=== PATIENT | male | born 1975 | race Caucasian/White ===

== ENCOUNTER 2017-03-14 09:06 | Emergency (ER) | payer SELFPAY ==
[~2017-03-14] VITALS: Ht 185.4 cm; Wt 80.0 kg
[~2017-03-14 09:06] MED LIST: DICL-201 PO; MULT-506 PO
[2017-03-14 09:11] VITALS: TEMP 37.6; Ht 185.4 cm; Wt 80.0 kg
[2017-03-14] MEDS ORDERED: HYDROmorphone INJ 1 MG/ML SYR IV STA (09:21)
[2017-03-14] MEDS ORDERED: CEFTRIAXONE SOD INJ 1 GM ADDVIAL IV STA (09:21)
[2017-03-14] MEDS ORDERED: KETOROLAC TROMETHAMINE 30 MG/ML VIAL IV STA (09:21)
[2017-03-14] MEDS ORDERED: SODIUM CHLORIDE 0.9% 1000ML 1,000 ML IV STA (09:21)
[2017-03-14] MEDS ORDERED: SULFAMETHOXAZOLE/TRIMETHOPRIM DS 800/160MG TAB PO STA (09:21)
[2017-03-14] MEDS ORDERED: SULF800T23 PO (10:16)
[2017-03-14] MEDS ORDERED: CEPH500C PO (10:16)
[2017-03-14] MEDS ORDERED: VALA1TAB2 PO (10:16)
[2017-03-14] MEDS ORDERED: OXYC-57 PO (10:16)
--- NOTE | 2017-03-14 10:25 | EMERGENCY ROOM VISIT NOTE ---
History Report prepared by Michelle: Eva Griffin Under the Supervision of: Dr. Pasquale Ferraro M.D. First contact with patient: 09:14 Chief Complaint: RASH Stated Complaint: PAIN IN GENITAL AREA, BUMPS, RASH History of Present Illness The patient is a 41 year old male who presents to the Emergency Room with complaints of a worsening rash for the past two days. The patient woke up two days ago with rash in the suprapubic area. The area is red with red and white bumps. He states that it is extremely painful. Movement exacerbates this pain. He rates his pain as a 10/10 in severity. Today the rash is spreading further up is abdomen. He was unable to sleep last night due to pain. The patient has not been using any lotions on the area. He has not tried any medications. He denies any recent antibiotic use. The patient had his significant other are trying to have a baby. He just had STI testing in December that was negative and denies any new sexual partners. He is not concerned for STIs. The patient denies urinary symptoms, testicular pain, and drainage from the penis. He does not work with children. Source of History: patient Onset: 2 days ago Position: abdomen (suprapubic ) Symptom Intensity: 10/10 Timing: worsening Modifying Factors (Worsening): movement Associated Symptoms: No urinary symptoms Note: Pt denies testicular pain and drainage from penis. Review of Systems See HPI for pertinent positives & negatives. A total of 10 systems reviewed and were otherwise negative. Past Medical & Surgical Medical Problems: (1) No significant active problems Family History Patient reports no known family medical history. Social History Smoking Status: Never Smoker Smokeless Tobacco Use: No Alcohol Use: occasionally Marital Status: Housing Status: lives with significant other Occupation Status: employed Current/Historical Medications Scheduled Cephalexin Monohydrate (Keflex), 1 CAP PO QID Sulfa/Trimethoprim (Bactrim Ds 800MG/160MG), 1 TAB PO BID Valacyclovir Hcl (Valtrex), 1,000 MG PO TID Scheduled PRN Oxycodone/Acetaminophen 5MG/325MG (Percocet 5MG/325MG), 1-2 TAB PO Q4H PRN for Pain Allergies Coded Allergies: No Known Allergies (Unverified , 03/14/17) Physical Exam Vital Signs Date Time Temp Pulse Resp B/P (MAP) Pulse Ox O2 Delivery O2 Flow Rate FiO2 03/14/17 11:28 98 18 144/102 98 03/14/17 09:11 37.6 129 20 135/95 97 Room Air Physical Exam GENERAL: Patient is a healthy-appearing well-nourished 41 year old male. HEAD: Normocephalic atraumatic EYES: Ocular movements intact pupils equal and react to light OROPHARYNX mucous membranes are moist no exudates present no erythema or edema present NECK: Supple no nuchal rigidity CHEST: Good equal expansion LUNGS: Clear and equal to auscultation CARDIAC: Normal S1 and S2 ABDOMEN: Soft nontender no guarding. BACK: No CVA tenderness EXTREMITIES: No pain upon palpation normal muscle strength in all groups no clubbing cyanosis or edema INTEGUMENTARY: Multiple pustular lesions in suprapubic area, trails up to the navel, it is not in the groin. No lymph nodes. Rash is exquisitely tender. NEURO: Patient is following commands and answering questions appropriately. Alert and oriented x3 Cranial Nerves 2-12 grossly intact Medical Decision & Procedures Laboratory Results 03/14/17 09:45 Red Blood Count 5.01, Mean Corpuscular Volume 87.8, Mean Corpuscular Hemoglobin 32.7, Mean Corpuscular Hemoglobin Concent 37.3, Mean Platelet Volume 9.8, Neutrophils (%) (Auto) 79.5, Lymphocytes (%) (Auto) 11.9, Monocytes (%) (Auto) 7.6, Eosinophils (%) (Auto) 0.7, Basophils (%) (Auto) 0.1, Neutrophils # (Auto) 12.08, Lymphocytes # (Auto) 1.81, Monocytes # (Auto) 1.15, Eosinophils # (Auto) 0.10, Basophils # (Auto) 0.02 03/14/17 09:45 Test 03/14/17 09:45 03/14/17 09:55 White Blood Count 15.19 K/uL (4.8-10.8) Red Blood Count 5.01 M/uL (4.7-6.1) Hemoglobin 16.4 g/dL (14.0-18.0) Hematocrit 44.0 % (42-52) Mean Corpuscular Volume 87.8 fL (80-100) Mean Corpuscular Hemoglobin 32.7 pg (25-34) Mean Corpuscular Hemoglobin Concent 37.3 g/dl (32-36) Platelet Count 221 K/uL (130-400) Mean Platelet Volume 9.8 fL (7.4-10.4) Neutrophils (%) (Auto) 79.5 % Lymphocytes (%) (Auto) 11.9 % Monocytes (%) (Auto) 7.6 % Eosinophils (%) (Auto) 0.7 % Basophils (%) (Auto) 0.1 % Neutrophils # (Auto) 12.08 K/uL (1.4-6.5) Lymphocytes # (Auto) 1.81 K/uL (1.2-3.4) Monocytes # (Auto) 1.15 K/uL (0.11-0.59) Eosinophils # (Auto) 0.10 K/uL (0-0.5) Basophils # (Auto) 0.02 K/uL (0-0.2) RDW Standard Deviation 38.5 fL (36.4-46.3) RDW Coefficient of Variation 12.1 % (11.5-14.5) Immature Granulocyte % (Auto) 0.2 % Immature Granulocyte # (Auto) 0.03 K/uL (0.00-0.02) Anion Gap 8.0 mmol/L (3-11) Est Creatinine Clear Calc Drug Dose 92.5 ml/min Estimated GFR () 87.1 Estimated GFR (Non- 75.2 BUN/Creatinine Ratio 8.3 (10-20) Calcium Level 9.7 mg/dl (8.5-10.1) Total Bilirubin 1.8 mg/dl (0.2-1) Direct Bilirubin 0.3 mg/dl (0-0.2) Aspartate Amino Transf (AST/SGOT) 21 U/L (15-37) Alanine Aminotransferase (ALT/SGPT) 24 U/L (12-78) Alkaline Phosphatase 66 U/L (45-117) Total Protein 9.3 gm/dl (6.4-8.2) Albumin 4.1 gm/dl (3.4-5.0) Lipase 189 U/L (73-393) Labs reviewed by ED physician. Medications Administered Medications (Trade) Dose Ordered Sig/Alfreda Route Start Time Stop Time Status Last Admin Dose Admin Ceftriaxone Sodium (Rocephin Inj) 1 gm NOW STAT IV 10/12/17 09:21 03/14/17 09:23 DC 03/14/17 09:54 1 GM Trimethoprim/ Sulfamethoxazole (Septra Ds 800/ 160MG Tab) 1 tab NOW STAT PO 03/14/17 09:21 03/14/17 09:23 DC 03/14/17 09:56 1 TAB Valacyclovir HCl (Valtrex Tab) 1,000 mg NOW STAT PO 03/14/17 09:21 03/14/17 09:23 DC 03/14/17 09:55 1,000 MG Ketorolac Tromethamine (Toradol Inj) 30 mg NOW STAT IV 03/14/17 09:21 03/14/17 09:23 DC 03/14/17 09:55 30 MG Hydromorphone HCl (Dilaudid Inj) 1 mg NOW STAT IV 03/14/17 09:21 03/14/17 09:23 DC 03/14/17 09:55 1 MG Sodium Chloride 1,000 ml @ 999 mls/hr Q1H1M STAT IV 03/14/17 09:21 03/14/17 10:21 DC 03/14/17 09:54 999 MLS/HR ED Course 0914: Past medical records reviewed. The patient was evaluated in room A10. A complete history and physical examination was performed. 0921: NSS 1000 ml @ 999 mls/hr IV, Dilaudid 1 mg IV, Toradol 30 mg IV, Valtrex Tab 1000 mg PO, Septra Ds 800/160 mg PO, Rocephin 1 gm IV 1008: I spoke with Dr. Wilkinson of dermatology. We discussed the patient's case and she will see the patient in the office today at 12:30pm for further evaluation. 1022: I reassessed the patient at this time. I discussed the results and treatment plan with the patient. I answered all pertaining questions that he had. He expressed understanding and verbalized agreement. The patient will be discharged home and will follow-up with dermatology this afternoon. Medical Decision Differential diagnosis: Etiologies such as contact dermatitis, viral exanthem, urticaria, allergic reaction, [place] syndrome, toxic epidermal necrolysis, erythema multiforme, cellulitis, scabies, HSV, varicella, zoster, eczema, staph scalded skin syndrome, fungal infection, as well as others were entertained. This is a 41-year-old male who presents emergency department with a nonspecific skin eruption. The patient has a large amount of pustular rash that is exquisitely painful to touch. He also has an elevation in his white blood count cell count. He denies any pustular drainage from his penis. An IV was established, the patient given Rocephin as well as Bactrim and started on Valtrex. Cultures were taken of this rash including viral and bacterial. I did discuss the case with the gut snatcher senior mobile application developer who agreed to see the patient today. Patient was in agreement with the treatment plan. Medication Reconcilliation Current Medication List: was personally reviewed by me Blood Pressure Screening Patient's blood pressure: Elevated blood pressure Blood pressure disposition: Elevated BP felt to be situational Consults Time Called: 1003 Consulting Physician: Dr. Wilkinson Returned Call: [phone] Wilkinson of dermatology. We discussed the patient's case and she will see the patient in the office today at 12:30pm for further evaluation. Impression Primary Impression: Rash and nonspecific skin eruption Scribe Attestation The scribe's documentation has been prepared under my direction and personally reviewed by me in its entirety. I confirm that the note above accurately reflects all work, treatment, procedures, and medical decision making performed by me. Departure Information Dispostion Home / Self-Care Prescriptions Oxycodone/Acetaminophen 5MG/325MG (PERCOCET 5MG/325MG) Tab 1-2 TAB PO Q4H Y for Pain, #14 TAB Prov: Pasquale Ferraro MD 03/14/17 Cephalexin Monohydrate (Keflex) 500 Mg Cap 1 CAP PO QID for 10 Days, #40 CAP Prov: Pasquale Ferraro MD 03/14/17 Sulfa/Trimethoprim (Bactrim Ds 800MG/160MG) Tab 1 TAB PO BID for 10 Days, #20 TAB Prov: Pasquale Ferraro MD 03/14/17 Valacyclovir Hcl (VALTREX) 1 Gm Tab 1000 MG PO TID, #21 TAB Prov: Pasquale Ferraro MD 03/14/17 Referrals No Doctor, Assigned (PCP) Forms HOME CARE DOCUMENTATION FORM, IMPORTANT VISIT INFORMATION, WORK / SCHOOL INSTRUCTIONS Patient Instructions My [facility] Additional Instructions Go directly to Dr Wilkinson's office @ [phone] You received narcotic or benzodiazepene medication while in the emergency room today. This is an addictive medication that may cause drowziness as well as constipation. Do not drive, operate heavy machinery, or drink alcohol under the influence of this medication. Take 600 mg Ibuprofen every 6 hours Take Percocet for breakthrough pain Culture results are usually available in approx 48 hours You have been examined and treated today on an emergency basis only. This is not a substitute for, or an effort to provide, complete comprehensive medical care. It is impossible to recognize and treat all injuries or illnesses in a single emergency department visit. It is therefore important that you follow up closely with your PCP. Call as soon as possible for an appointment. Thank you for your time and consideration. I look forward to speaking with you again soon. Please don't hesitate to call us if you have any questions.
[2017-03-14 10:34] LABS: BUN/CREATININE RATIO 8.3 (10-20); CALCIUM 9.7 mg/dl (8.5-10.1); CREATININE 1.2 mg/dl (0.60-1.40); POTASSIUM 3.8 mmol/L (3.5-5.1)
[2017-03-14 10:45] LABS: BASO % 0.1 %; BASO ABS # 0.02 K/uL (0-0.2); COMPLETE YES; EOS % 0.7 %; IG% 0.2 %; LYMPH % 11.9 %; LYMPH ABS # 1.81 K/uL (1.2-3.4); MEAN CELL VOLUME 87.8 fL (80-100); MEAN CORPUSCULAR HEMOGLOBIN 32.7 pg (25-34); MEAN CORPUSCULAR HGB CONC 37.3 g/dl (32-36); MEAN PLATELET VOLUME 9.8 fL (7.4-10.4); MONO % 7.6 %; NEUT % 79.5 %; PLATELET COUNT 221 K/uL (130-400); RED BLOOD COUNT 5.01 M/uL (4.7-6.1); WHITE BLOOD COUNT 15.19 K/uL (4.8-10.8)
[2017-03-14 11:28] VITALS: BP 144/102; PULSE 98; O2SAT 98
[2017-03-19 12:23] LABS: HERPES SIMPLEX CULT SOURCE OTHER-GROIN; HERPES SIMPLEX VIRUS CULT NOT ISOLATED (NOT ISOLATED)
== END 2017-03-14 11:30 | disposition home or self-care (01) ==
LOC: C.EDB 09:08 → C.EDA 11:30
DX: R21 Rash and other nonspecific skin eruption (principal)